=== PATIENT | female | born 1960 | race Caucasian/White ===

== ENCOUNTER 2021-02-05 10:30 | Outpatient (CLI) | payer OTHER ==
[~2021-02-05 10:30] MED LIST: AMOX1TAB12 PO; KETO10TA2 PO; METHOTREXATE25 MG/M2; TRAM1TAB PO
== END 2021-02-05 11:00 | disposition home or self-care (01) ==
LOC: ASH CLINIC 10:30
DX: U07.1 COVID-19 (principal); Z23 Encounter for immunization